=== PATIENT | female | born 1950 | race Caucasian/White ===

== ENCOUNTER → 2016-12-12 | Outpatient (CLI) | payer OTHER ==
[~2016-12-12] VITALS: Ht 162.6 cm; Wt 77.1 kg
[~2016-12-12] MED LIST: DIGESTIVE ENZY1 EAC3 PO; MAGNESIUM POWDER PO; MULTIPLE VITAM1 EACH PO; [UNRECOGNIZED DRUG - OTHER] PO
[2016-12-12 10:04] LABS: POINT-OF-CARE METER ID UU14107333
== END | disposition home or self-care (01) ==
LOC: AMB 09:21
PROVIDERS: Internal Medicine Gastroenterology
DX: Z12.11 Encounter for screening for malignant neoplasm of colon (principal); D12.2 Benign neoplasm of ascending colon; K63.89 Other specified diseases of intestine; D12.3 Benign neoplasm of transverse colon; K63.5 Polyp of colon; K57.30 Diverticulosis of large intestine without perforation or abscess without bleeding; Z86.010 Personal history of colon polyps; K21.9 Gastro-esophageal reflux disease without esophagitis; R13.10 Dysphagia, unspecified; K20.0 Eosinophilic esophagitis; E78.5 Hyperlipidemia, unspecified; K59.09 Other constipation; K44.9 Diaphragmatic hernia without obstruction or gangrene
CPT/HCPCS: 82948; 88305; 93005; J2250; J3010